=== PATIENT | female | born 1990 | race Caucasian/White ===

== ENCOUNTER 2016-10-25 22:31 | Emergency (ER) | payer MEDICAID, OTHER ==
[~2016-10-25] VITALS: Ht 167.6 cm; Wt 139.7 kg
[~2016-10-25 22:31] MED LIST: NAPR-243 PO; PRD20T PO; TRAM50TA2 PO
--- OUTSIDE RECORDS SUMMARY | 2016-10-25 22:38 | XMS REPORT | Continuity of Care Document ---
Author Author [facility] Organization [facility] Address Unknown Phone Unavailable Care Team Providers Care Ships Equipment Engineer Name Role Phone [facility] [place], [facility] Insurance Providers Payer Name Policy Number Subscriber Name Relationship Self Pay Yolanda Velasquez 18 Self / Same As Patient Advance Directives Directive Response Recorded Date/Time Advance Directives No 09/23/14 7:29pm Resuscitation Status Full Code 09/23/14 7:29pm Problems Medical Problems Problem Onset Date Status Cervical muscle strain Unknown Active Back strain Unknown Active Cervical muscle strain Unknown Active Carpal tunnel syndrome of right wrist Unknown Active Medications Medication Dose Route Sig Days/Qty Instructions Order Date Discontinued Date Status Prednisone 40 Mg PO DAILY 10 Qty 09/23/14 Active Tramadol Hcl 50 Mg PO EVERY 4HRS PRN PAIN 10 Qty 09/23/14 Active Naproxen 1 Each PO THREE TIMES A DAY 20 Qty 09/23/14 Active Social History Social History Problem Response Recorded Date/Time Alcohol Use Occasionally Uses 09/23/2014 7:29pm Recreational Drug Use No 09/23/2014 7:29pm Recent Foreign Travel No 09/23/2014 7:27pm Smoking Status Current Everyday Smoker 09/23/2014 7:29pm Query Response Start Date Stop Date Smoking Status Current Everyday Smoker Hospital Discharge Instructions No hospital discharge instructions. Plan of Care No plan of care. Functional Status No functional status results. Allergies, Adverse Reactions, Alerts Allergen Type Severity Reaction Status Last Updated Penicillins ([id number]) Allergy Unknown Active 09/19/14 latex Allergy Unknown Active 09/19/14 Immunizations Name Given Type Tetanus Booster (TDap) Unknown Historical Vital Signs Acute Vital Signs Vital Response Date/Time Temperature (Fahrenheit) 99 degrees F (97.6 - 99.5) Temperature (Calculated Celsius) 37.2252 degrees C (36.4 - 37.5) Temperature Source Temporal Pulse Rate (adult) 87 bpm (60 - 90) Respiratory Rate 18 bpm (12 - 24) O2 Sat by Pulse Oximetry 99 % (88 - 100) Blood Pressure 135/76 mm Hg Pain Pain Intensity 5 Height (Feet) 5 feet Height (Inches) 6 inches Height (Calculated Centimeters) 167.842732 cm Weight (Pounds) 242 pounds Weight (Calculated Kilograms) 109.393818 kilograms Calculated BMI 39.06 Results Laboratory Results Test Name Result Units Flags Reference Collection Date/Time Result Date/ Time Comments Urine Color YELLOW 09/19/2014 11:52pm 09/20/2014 12:11am Urine Clarity SLIGHTLY CLOUDY 09/19/2014 11:52pm 09/20/2014 12: 11am Urine pH 6 5-9 09/19/2014 11:52pm 09/20/2014 12:11am Urine Specific [place] 1.025 * 1.016-1.022 09/19/2014 11:52pm 2013 12:11am Urine Protein NEGATIVE NEGATIVE 09/19/2014 11:52pm 09/20/2014 12: 11am Urine Glucose (UA) NEGATIVE NEGATIVE 09/19/2014 11:52pm 09/20/2014 12 :11am Urine RBC (Auto) 3+ * NEGATIVE 09/19/2014 11:52pm 09/20/2014 12:11am Urine Ketones NEGATIVE NEGATIVE 09/19/2014 11:52pm 09/20/2014 12: 11am Urine Nitrite NEGATIVE NEGATIVE 09/19/2014 11:52pm 09/20/2014 12: 11am Urine Bilirubin NEGATIVE NEGATIVE 09/19/2014 11:52pm 09/20/2014 12: 11am Urine Urobilinogen NORMAL MG/DL NORMAL 09/19/2014 11:52pm 09/20/2014 12 :11am Urine Leukocyte Esterase 1+ * NEGATIVE 09/19/2014 11:52pm 09/20/2014 12 :11am Urine RBC 5-10 /HPF * 09/19/2014 11:52pm 09/20/2014 12:11am Urine WBC NONE /HPF 09/19/2014 11:52pm 09/20/2014 12:11am Urine Bacteria TRACE /HPF 09/19/2014 11:52pm 09/20/2014 12:11am Urine Squamous Epithelial Cells 5-10 /HPF 09/19/2014 11:52pm 2013 12:11am Urine Crystals NONE /LPF 09/19/2014 11:52pm 09/20/2014 12:11am Urine Casts NONE /LPF 09/19/2014 11:52pm 09/20/2014 12:11am Urine Mucus MODERATE /LPF * 09/19/2014 11:52pm 09/20/2014 12:11am Urine Culture Indicated NO 09/19/2014 11:52pm 09/20/2014 12:11am Procedures No known history of procedures. Encounters Encounter Location Date/Time Departed Emergency Room [facility] 09/23/14 7:19pm Departed Emergency Room [facility] 09/19/14 11:33pm Recent Diagnosis
[2016-10-25 23:03] LABS: BILIRUBIN,URINE NEGATIVE (NEGATIVE); KETONES,URINE NEGATIVE (NEGATIVE); LEUKOCYTE ESTERASE ,URINE NEGATIVE (NEGATIVE); NITRITE,URINE NEGATIVE (NEGATIVE); PH,URINE 6 (5-9); PROTEIN,URINE NEGATIVE (NEGATIVE); UROBILINOGEN,URINE NORMAL (NORMAL)
[2016-10-25 23:16] LABS: WBC,URINE RARE /HPF
--- NOTE | 2016-10-25 23:24 | ED Abdominal Pain ---
General Chief Complaint: Abdominal/GI Problems Stated Complaint: ABD PAIN,10 WEEKS Nursing Triage Note: PT C/O DIFFUSE ABD PAIN SINCE LAST NOC. SHE DENIES ANY N/V/D OR ANY BLEEDING. PT REPORTS SHE IS APPROX 10 WEEKS . Sepsis Screen: No Definite Risk Source of Information: Patient History of Present Illness Time Seen By Provider: 22:55 Initial Comments PT C/O MID AND LOWER ABDOMINAL PAIN SINCE LAST NIGHT STATES PAIN IS CONSTANT AND NOTHING WORSENS OR IMPROVES PAIN PT STATES SHE IS 10 1/2 WEEKS BY LMP OF 08/18/16 PT IS HERE BECAUSE SHE WANTS AN ULTRASOUND "TO MAKE SURE I'M NOT MISCARRYING" PT CHANGES STORY MULTIPLE TIMES ABOUT NUMBER OF PREGNANCIES--INITIALLY SAID THIS WAS HER FIRST , THEN STATES IT IS HER SECOND AND SHE HAD 1 MISCARRIAGE, THEN STATES SHE HAD TWINS AND HAD A , THEN STATES SHE HAD A SECOND MISCARRIAGE AND ON QUESTIONING IF SHE HAS ACTUALLY HAD 4 PREGNANCIES, SHE STATES YES PT HAS HAD ONGOING NAUSEA AND VOMITING X 2 WEEKS--NO VOMITING TODAY WAS SEEN IN [place] ER 10/18/16 FOR NAUSEA/VOMITING AND URI SYMPTOMS AND WAS DX WITH AND URI, AND GIVEN RX FOR KEFLEX PT HAS NOT HAD ANY CARE YET--PLANS ON SEEING DR. JIANG. NO URINARY SYMPTOMS NO VAGINAL BLEEDING OR DISCHARGE NO BACK PAIN NO FEVER PCP: YANELI-[facility]OR[facility], [place] DURAN HAS APPOINTMENT WITH DR. JIANG 10/31/16 Allergies and Home Medications Allergies Coded Allergies: Penicillins (Unverified Allergy, Unknown, 09/19/14) ANAPHYLAXIS latex (Unverified Allergy, Unknown, 09/19/14) HIVES Home Medications Naproxen 500 Mg Tablet #20 1 EACH PO TID Prescribed by: NEELA DAVIS on 09/23/141949 Prednisone 20 Mg Tablet #10 40 MG PO DAILY Prescribed by: NEELA DAVIS on 09/23/141948 Tramadol Hcl 50 Mg Tablet #10 50 MG PO Q4H PRN PRN PAIN Prescribed by: NEELA DAVIS on 09/23/141949 Review of Systems Constitutional: no symptoms reported Respiratory: No Symptoms Reported Cardiovascular: No Symptoms Reported Gastrointestinal: See HPI Abdominal Pain Genitourinary: See HPI Musculoskeletal: no symptoms reported Skin: no symptoms reported Psychiatric/Neurological: No Symptoms Reported Endocrine: No Symptoms Reported Hematologic/Lymphatic: No Symptoms Reported Past Stbbxvi-Frgpzm-Wweuog Hx Patient Social History Alcohol Use: Denies Use Recreational Drug Use: No Smoking Status: Never a Smoker Recent Foreign Travel: No Contact w/Someone Who Travel: No Recent Infectious Disease Expo: No Recent Hopitalizations: No Physical Abuse Screen: No Sexual Abuse: No Immunizations Up To Date Tetanus Booster (TDap): Unknown Seasonal Allergies Seasonal Allergies: No Surgeries HX Surgeries: Yes (CYST REMOVED FROM FOOT; X 1 (TWINS); BMT'S ) Surgeries: Adenoidectomy, Section, Ear Surgery, Gallbladder, Orthopedic, Tonsillectomy Respiratory Hx Respiratory Disorders: Yes Respiratory Disorders: Asthma Cardiovascular Hx Cardiac Disorders: Yes Cardiac Disorders: Heart Murmur, Hypertension Neurological Hx Neurological Disorders: Yes Neurological Disorders: Seizure Disorder Reproductive System Hx Reproductive Disorders: Yes Female Reproductive Disorders: Polycystic Ovarian Dis Genitourinary Hx Genitourinary Disorders: Yes Genitourinary Disorders: Bladder Infection Gastrointestinal Hx Gastrointestinal Disorders: Yes Gastrointestinal Disorders: Ulcer Musculoskeletal Hx Musculoskeletal Disorders: Yes (L5 FRACTURE) Musculoskeletal Disorders: Arthritis, Chronic Back Pain, Fractures Endocrine Hx Endocrine Disorders: Yes (HYPOGLYCEMIA; MORBID OBESTIY; PCOS) HEENT HX ENT Disorders: Yes (BMT'S; 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) Hearing Impairment: Hard of Hearing Cancer Hx Cancer: No Psychosocial Hx Psychiatric Problems: Yes Behavioral Health Disorders: ADD/ADHD, Anxiety, Bipolar, Schizophrenia, Depression Integumentary HX Skin/Integumentary Disorder: No Blood Transfusions Hx Blood Disorders: No Physical Exam Vital Signs VS - Last 72 Hours, by Label 10/25/16 10/26/16 22:51 00:59 Temp 98.1 98.1 Pulse 95 95 Resp 20 20 B/P 140/80 Pulse Ox 96 96 O2 Delivery Room Air Room Air Capillary Refill : Less Than 3 Seconds General Appearance: no apparent distress obese (MORBIDLY OBESE) other (VERY MALODOROUS, CLOTHING COVERED IN ANIMAL HAIR; DOES NOT APPEAR TO BE IN ANY DISCOMFORT--WALKS AND MOVES UPRIGHT WITHOUT DIFFICULTY) Respiratory: normal breath sounds no respiratory distress no accessory muscle use Cardiovascular: regular rate, rhythm no murmur Gastrointestinal: normal bowel sounds soft no organomegaly no pulsatile massNo distended, No guarding, No rebound, tenderness (DIFFUSE LOWER ABDOMINAL TENDERNESS)No hernia, No mass Extremities: normal inspection Back: no CVA tenderness Neurologic/Psychiatric: rejector II-XII nml as tested no motor/sensory deficits alert normal mood/affect oriented x 3 Skin: normal color warm/dry Progress/Results/Core Measures Results/Orders Lab Results Laboratory Tests Test 10/25/16 22:40 10/25/16 23:41 10/25/16 23:55 Range/Units Urine Bacteria FEW H /HPF Urine Bilirubin NEGATIVE NEGATIVE Urine Casts NONE /LPF Urine Clarity CLEAR Urine Color YELLOW Urine Crystals NONE /LPF Urine Culture Indicated NO Urine Glucose (UA) NEGATIVE NEGATIVE Urine Ketones NEGATIVE NEGATIVE Urine Leukocyte Esterase NEGATIVE NEGATIVE Urine Mucus SMALL H /LPF Urine Nitrite NEGATIVE NEGATIVE Urine Protein NEGATIVE NEGATIVE Urine RBC NONE /HPF Urine RBC (Auto) NEGATIVE NEGATIVE Urine Specific [place] 1.020 1.016-1.022 Urine Squamous Epithelial Cells 2-5 /HPF Urine Urobilinogen NORMAL NORMAL MG/DL Urine WBC RARE /HPF Urine pH 6 5-9 Basophils # (Auto) 0.1 0.0-0.1 10^3/uL Basophils (%) (Auto) 1 0-10 % Eosinophils # (Auto) 0.2 0.0-0.3 10^3/uL Eosinophils (%) (Auto) 2 0-10 % Hematocrit 39 35-52 % Hemoglobin 13.0 11.5-16.0 G/DL Lymphocytes # (Auto) 2.9 1.0-4.0 X 10^3 Lymphocytes (%) (Auto) 24 12-44 % Mean Corpuscular Hemoglobin 28 25-34 PG Mean Corpuscular Hemoglobin Concent 34 32-36 G/DL Mean Corpuscular Volume 84 80-99 FL Mean Platelet Volume 12.0 H 7.4-10.4 FL Monocytes # (Auto) 1.2 H 0.0-1.0 X 10^3 Monocytes (%) (Auto) 10 0-12 % Neutrophils # (Auto) 7.5 1.8-7.8 X 10^3 Neutrophils (%) (Auto) 63 42-75 % Platelet Count 180 130-400 10^3/uL Red Blood Count 4.59 4.35-5.85 10^6/uL Red Cell Distribution Width 13.7 10.0-14.5 % White Blood Count 11.9 H 4.3-11.0 10^3/uL Anion Gap 12 5-14 MMOL/L BUN/Creatinine Ratio 14 Blood Urea Nitrogen 10 7-18 MG/DL Calcium Level 9.3 8.5-10.1 MG/DL Carbon Dioxide Level 19 L 21-32 MMOL/L Chloride Level 106 98-107 MMOL/L Creatinine 0.72 0.60-1.30 MG/DL Estimat Glomerular Filtration Rate > 60 Glucose Level 90 70-105 MG/DL Human Chorionic Gonadotropin, Quant 47279 H <5 MIU/ML Potassium Level 3.6 3.6-5.0 MMOL/L Sodium Level 137 135-145 MMOL/L My Orders Orders-LEONA STEWART DO Abo Rh Type (10/25/16 22:58) Basic Metabolic Panel (10/25/16 22:58) Cbc With Automated Diff (10/25/16 22:58) Hcg,Quantitative (10/25/16 22:58) Ua Culture If Indicated (10/25/16 22:58) Us Ob Transvaginal 00511 (10/26/16 00:01) Vital Signs/I&O Vital Sign - Last 12Hours 10/25/16 10/26/16 22:51 00:59 Temp 98.1 98.1 Pulse 95 95 Resp 20 20 B/P 140/80 Pulse Ox 96 96 O2 Delivery Room Air Room Air Blood Pressure Mean: 100 Progress Note : Progress Note UNEVENTFUL ER STAY Diagnostic Imaging Comments ULTRASOUND--5 WEEK 5 DAY, INTRAUTERINE GESTATIONAL SAC. OVARIES NOT IDENTIFIED BUT NO ADNEXAL MASSES AND NO FREE FLUID IN PELVIS--PER TECH REPORT @ 0030 AND PER STAT RAD VIA FAX @ [phone] Reviewed: Reviewed by Me Departure Impression Impression: Primary Impression: Abdominal pain during in first trimester Disposition: HOME, SELF-CARE Condition: Stable Departure-Patient Inst. Referrals: [facility] (PCP) Primary Care Physician Patient Instructions: Acute Abdomen (Belly Pain), Adult (DC), How to Plan and Prepare for a Healthy , Nausea and Vomiting of (DC) Add. Discharge Instructions: LOTS OF CLEAR LIQUIDS--NO COFFEE, POP OR TEA TYLENOL NEEDED FOR PAIN FOLLOW UP WITH DR. JIANG NEXT WEEK SCHEDULED. All discharge instructions reviewed with patient and/or family. Voiced understanding. LEONA STEWART DO Oct 25, 2016 23:24
[2016-10-25 23:47] LABS: BASOPHILS # (AUTO) 0.1 10^3/uL (0.0-0.1); BASOPHILS % (AUTO) 1 % (0-10); EOSINOPHILS # (AUTO) 0.2 10^3/uL (0.0-0.3); EOSINOPHILS % (AUTO) 2 % (0-10); LYMPHOCYTES # (AUTO) 2.9 X 10^3 (1.0-4.0); LYMPHOCYTES % (AUTO) 24 % (12-44); MEAN CORPUSCULAR HEMOGLOBIN 28 PG (25-34); MEAN CORPUSCULAR HGB CONC 34 G/DL (32-36); MEAN CORPUSCULAR VOLUME 84 FL (80-99); MONOCYTES # (AUTO) 1.2 X 10^3 (0.0-1.0); MONOCYTES % (AUTO) 10 % (0-12); NEUTROPHILS # (AUTO) 7.5 X 10^3 (1.8-7.8); NEUTROPHILS % (AUTO) 63 % (42-75); PLATELET COUNT 180 10^3/uL (130-400); RED BLOOD COUNT 4.59 10^6/uL (4.35-5.85); RED CELL DISTRIBUTION WIDTH 13.7 % (10.0-14.5); WHITE BLOOD COUNT 11.9 10^3/uL (4.3-11.0)
[2016-10-26 00:26] LABS: ANION GAP 12 MMOL/L (5-14); BLOOD UREA NITROGEN 10 MG/DL (7-18); BUN/CREATININE RATIO 14; CALCIUM 9.3 MG/DL (8.5-10.1); CARBON DIOXIDE 19 MMOL/L (21-32); CHLORIDE 106 MMOL/L (98-107); CREATININE SERUM 0.72 MG/DL (0.60-1.30); GFR ESTIMATED > 60; GLUCOSE 90 MG/DL (70-105); POTASSIUM 3.6 MMOL/L (3.6-5.0); SODIUM 137 MMOL/L (135-145)
[2016-10-26 00:59] VITALS: BP 140/80
--- NOTE | 2016-10-26 07:37 | Diagnostic Imaging Report ---
INDICATION: Pelvic pain EXAMINATION: OB sonogram There appears to be an intrauterine gestational sac with a mean sac diameter of 1 cm corresponding to a gestational age of 5 weeks and 5 days. A pole cannot be seen. Yolk sac was not seen. Neither ovary can be found because of patient body habitus. There is no free fluid. IMPRESSION: There appears to be an intrauterine gestational sac estimated gestational age of 5 weeks 5 days. Dictated by: Dictated on workstation # [id number]
== END 2016-10-26 00:59 | disposition home or self-care (01) ==
LOC: EDUNIT# 22:31 → ER 22:33
DX: O26.891 Other specified pregnancy related conditions, first trimester (principal); O99.211 Obesity complicating pregnancy, first trimester; Z3A.01 Less than 8 weeks gestation of pregnancy
CPT/HCPCS: 36415; 76817; 80048; 81000; 84702; 85025; 86900; 86901